=== PATIENT | male | born 1940 | race Caucasian/White ===

== ENCOUNTER 2017-06-30 16:12 | Emergency (ER) | payer MEDICARE, OTHER ==
[~2017-06-30 16:12] MED LIST: ALEN70TA47 PO; CINN500C PO; DOCU-116 PO; FERR325T22 PO; FOLI1TAB61 PO; INSU100V12 SQ; LISI2.5T2 PO; METF10004 PO; OMEG1CAP67 PO; SITA100T12 PO; TAMS0.4C32 PO; TRAM50TA2 PO
[2017-06-30] MEDS ORDERED: TETANUS/DIPHTHERIA TOXOID [ADULT] 0.5 ML VIAL IM ONE (16:30)
== END 2017-06-30 19:11 | disposition home or self-care (01) ==
LOC: EDH 16:12
DX: S00.01XA Abrasion of scalp, initial encounter (principal); I10 Essential (primary) hypertension; E78.5 Hyperlipidemia, unspecified; E11.9 Type 2 diabetes mellitus without complications; W18.39XA Other fall on same level, initial encounter; Y93.89 Activity, other specified; Y92.098 Other place in other non-institutional residence as the place of occurrence of the external cause; Y99.8 Other external cause status
CPT/HCPCS: 70450; 90471; 90714

== ENCOUNTER 2021-06-12 08:23 | Observation (INO) | payer MEDICARE, OTHER ==
[~2021-06-12] VITALS: Ht 175.3 cm; Wt 65.1 kg
[~2021-06-12 08:23] MED LIST changes: -ALEN70TA47 PO; +ALEN70TA80 PO; +LISI2.5T13 PO; -LISI2.5T2 PO; +METF-446 PO; -METF10004 PO
[2021-06-12 08:41] LABS: BASOPHILS % (AUTO) 0.2 % (0.0-5.0); EOSINOPHILS % (AUTO) 0.4 % (0.0-8.0); HEMATOCRIT 43.6 % (42-54); LYMPHOCYTES % (AUTO) 9.1 % (21.0-51.0); MEAN CORPUSCULAR HEMOGLOBIN 31.7 pg (27.0-33.0); MEAN CORPUSCULAR HGB CONC 33.5 g/dL (32.0-36.0); MEAN CORPUSCULAR VOLUME 94.8 fL (79-99); MONOCYTES % (AUTO) 5.1 % (3.0-13.0); NEUTROPHILS % (AUTO) 84.8 % (40.0-77.0); PLATELET COUNT (AUTO) 246 K/uL (130-400); RED CELL DISTRIBUTION WIDTH 12.6 % (11.0-15.5); WHITE BLOOD COUNT (AUTO) 9.1 K/uL (4.8-10.8)
[2021-06-12 08:49] LABS: POTASSIUM 4.4 mmol/L (3.5-5.1)
[2021-06-12 08:54] LABS: ALBUMIN 3.5 g/dL (3.5-5.0); BILIRUBIN,TOTAL 0.4 mg/dL (0.2-1.0); TOTAL PROTEIN, SERUM 6.4 g/dL (6.0-8.3)
[2021-06-12] MEDS ORDERED: 0.9%NACL 1000ML 1,000 ML IV ONE (09:00)
[2021-06-12] MEDS ORDERED: DiphenhydrAMINE HCL 50 MG/ML VIAL IV ONE (09:00)
[2021-06-12] MEDS ORDERED: SOLU-MEDROL 40MG VIAL ONE (09:06)
[2021-06-12] MEDS: SOLU-MEDROL 125MG VIAL IVP SCH (09:17)
[2021-06-12] MEDS ORDERED: ACETAMINOPHEN 325 MG TAB PO PRN (14:30)
[2021-06-12] MEDS ORDERED: ONDANSETRON 4MG INJ IVP PRN (14:30)
[2021-06-12] MEDS ORDERED: ACETAMINOPHEN 650 MG SUPPOSITORY RC PRN (14:30)
[2021-06-12] MEDS ORDERED: CLONIDINE HCL 0.1 MG TABLET PO PRN (14:30)
[2021-06-12] MEDS: LACTATED RINGERS 1000ML 1,000 ML IV SCH ×2 (15:24→22:30)
[2021-06-12] MEDS ORDERED: IOHEXOL 350 MG/ML 100ML INFUS..BTL IV ONE (15:46)
[2021-06-12] MEDS: INSULIN HUMULIN R 100 UNIT/ML 3ML SQ SCH ×2 (17:27→20:49)
[2021-06-12 18:30] LABS: MAGNESIUM 1.8 mg/dL (1.80-2.40)
[2021-06-12 18:42] LABS: APPEARANCE,URINE Clear (CLEAR); BILIRUBIN,URINE Negative (NEGATIVE); COLOR,URINE Yellow (YELLOW); GLUCOSE, URINE (UA) >=1000 mg/dL (NEGATIVE); KETONES,URINE 15 mg/dL (NEGATIVE); LEUKOCYTE ESTERASE ,URINE Negative (NEGATIVE); NITRATE,URINE Negative (NEGATIVE); OCCULT BLOOD,URINE Negative (NEGATIVE); PROTEIN,URINE Negative (NEGATIVE); UROBILINOGEN,URINE 0.2 mg/dL (0.2-1.0)
[2021-06-12 18:49] LABS: BACTERIA,URINE Rare /HPF (None Seen); RBC,URINE 0-1 /HPF (0-1); WBC,URINE 0-1 /HPF (0-1)
[2021-06-12 18:50] LABS: SQUAMOUS EPITHELIAL CELL,UR Rare /HPF (0-2)
[2021-06-12] MEDS: M.V.I. IV [ADULT] 10 ML, FOLIC ACID 1 MG, THIAMINE HCL 100 MG in 0.9%NACL 1000ML 1,000 ML IV SCH (19:34)
[2021-06-12] MEDS ORDERED: DIPHENHYDRAMINE HCL 25 MG CAPSULE ONE (20:45)
[2021-06-12] MEDS: Vitamin B Complex/Vit C/Folic Acid PO SCH (20:48)
[2021-06-12] MEDS: FISH OIL 1000 MG/CAP PO SCH (20:48)
[2021-06-12] MEDS: TAMSULOSIN HCL 0.4 MG CAP.ER.24H PO SCH (20:48)
[2021-06-12] MEDS: DOCUSATE SODIUM 100 MG CAP PO SCH (20:48)
[2021-06-12] MEDS: DIPHENHYDRAMINE HCL 25 MG CAPSULE PO SCH (21:04)
[2021-06-13] MEDS ORDERED: DIPHENHYDRAMINE HCL 25 MG CAPSULE PO SCH
[2021-06-13] MEDS: DIPHENHYDRAMINE HCL 25 MG CAPSULE PO SCH ×4 (02:01→18:05)
[2021-06-13 05:11] LABS: BASOPHILS % (AUTO) 0.3 % (0.0-5.0); EOSINOPHILS % (AUTO) 0.3 % (0.0-8.0); HEMATOCRIT 39.2 % (42-54); MEAN CORPUSCULAR HEMOGLOBIN 31.7 pg (27.0-33.0); MEAN CORPUSCULAR HGB CONC 34.4 g/dL (32.0-36.0); MONOCYTES % (AUTO) 5.3 % (3.0-13.0); NEUTROPHILS % (AUTO) 82.8 % (40.0-77.0); PLATELET COUNT (AUTO) 262 K/uL (130-400); RED BLOOD CELL COUNT(AUTO) 4.26 MIL/uL (4.50-6.20); RED CELL DISTRIBUTION WIDTH 12.8 % (11.0-15.5); WHITE BLOOD COUNT (AUTO) 11.5 K/uL (4.8-10.8)
[2021-06-13 05:23] LABS: CREATININE 0.8 mg/dL (0.5-1.5); POTASSIUM 4.1 mmol/L (3.5-5.1)
[2021-06-13] MEDS: LACTATED RINGERS 1000ML 1,000 ML IV SCH (06:21)
[2021-06-13] MEDS: INSULIN HUMULIN R 100 UNIT/ML 3ML SQ SCH ×4 (07:30→22:30)
[2021-06-13] MEDS ORDERED: ASPIRIN 325MG TAB PO SCH (08:00)
[2021-06-13] MEDS ORDERED: ENOXAPARIN SODIUM 40 MG/0.4 ML SYRINGE SQ SCH (09:00)
[2021-06-13] MEDS ORDERED: M.V.I. IV [ADULT] 10 ML, FOLIC ACID 1 MG, THIAMINE HCL 100 MG in 0.9%NACL 1000ML 1,000 ML IV SCH (09:00)
[2021-06-13] MEDS: SOLU-MEDROL 125MG VIAL IVP SCH (09:45)
[2021-06-13] MEDS: M.V.I. IV [ADULT] 10 ML, FOLIC ACID 1 MG, THIAMINE HCL 100 MG in 0.9%NACL 1000ML 1,000 ML IV SCH (09:45)
[2021-06-13] MEDS: FERROUS SULFATE 325 MG TABLET.DR PO SCH (09:45)
[2021-06-13] MEDS: PANTOPRAZOLE 40 MG TAB DR PO SCH (09:45)
[2021-06-13] MEDS: DOCUSATE SODIUM 100 MG CAP PO SCH ×2 (09:45→22:30)
[2021-06-13] MEDS: ASPIRIN 81 MG EC TAB PO SCH (11:00)
[2021-06-13] MEDS ORDERED: DIPHENHYDRAMINE 2% CREAM 30 GM TP PRN (12:00)
[2021-06-13] MEDS ORDERED: DIPHENHYDRAMINE HCL 25 MG CAPSULE PO PRN (12:00)
[2021-06-13] MEDS: CLOPIDOGREL 75MG TAB PO SCH (12:23)
[2021-06-13] MEDS ORDERED: PHARMACY COMMUNICATION MISC SCH (18:00)
[2021-06-13] MEDS ORDERED: SIMVASTATIN 10 MG TABLET PO SCH (21:00)
[2021-06-13] MEDS: Vitamin B Complex/Vit C/Folic Acid PO SCH (22:30)
[2021-06-13] MEDS: FISH OIL 1000 MG/CAP PO SCH (22:30)
[2021-06-13] MEDS: SOLU-MEDROL 40MG VIAL IVP SCH (22:30)
[2021-06-13] MEDS: TAMSULOSIN HCL 0.4 MG CAP.ER.24H PO SCH (22:30)
[2021-06-14 00:30] VITALS: BP 138/71
[2021-06-14] MEDS: LACTATED RINGERS 1000ML 1,000 ML IV SCH ×2 (00:41→09:00)
[2021-06-14] MEDS: DIPHENHYDRAMINE HCL 25 MG CAPSULE PO SCH ×3 (00:41→11:36)
[2021-06-14 03:35] VITALS: BP 111/75
[2021-06-14] MEDS: INSULIN HUMULIN R 100 UNIT/ML 3ML SQ SCH ×2 (06:08→11:34)
[2021-06-14 07:00] VITALS: BP 142/60
[2021-06-14 08:00] VITALS: BP 133/56
[2021-06-14 08:29] LABS: HEMATOCRIT 38.6 % (42-54); MEAN CORPUSCULAR HEMOGLOBIN 32.1 pg (27.0-33.0); MEAN CORPUSCULAR HGB CONC 33.9 g/dL (32.0-36.0); MEAN CORPUSCULAR VOLUME 94.6 fL (79-99); RED BLOOD CELL COUNT(AUTO) 4.08 MIL/uL (4.50-6.20); RED CELL DISTRIBUTION WIDTH 12.7 % (11.0-15.5); WHITE BLOOD COUNT (AUTO) 8.7 K/uL (4.8-10.8)
[2021-06-14 08:36] LABS: CREATININE 0.9 mg/dL (0.5-1.5); POTASSIUM 4.2 mmol/L (3.5-5.1)
[2021-06-14] MEDS ORDERED: ASPIRIN 81 MG EC TAB PO SCH (09:00)
[2021-06-14] MEDS: CLOPIDOGREL 75MG TAB PO SCH (09:00)
[2021-06-14] MEDS: ASPIRIN 81 MG EC TAB PO SCH (09:00)
[2021-06-14] MEDS: FERROUS SULFATE 325 MG TABLET.DR PO SCH (09:00)
[2021-06-14] MEDS: DOCUSATE SODIUM 100 MG CAP PO SCH (09:00)
[2021-06-14] MEDS: PANTOPRAZOLE 40 MG TAB DR PO SCH (09:00)
[2021-06-14] MEDS: SOLU-MEDROL 40MG VIAL IVP SCH (09:08)
[2021-06-14] MEDS: M.V.I. IV [ADULT] 10 ML, FOLIC ACID 1 MG, THIAMINE HCL 100 MG in 0.9%NACL 1000ML 1,000 ML IV SCH (09:29)
[2021-06-14] MEDS ORDERED: DIPH25TA51 PO (11:48)
[2021-06-14] MEDS ORDERED: METH4TAB3 PO (11:48)
== END 2021-06-14 14:10 | disposition home or self-care (01) ==
LOC: EDH 08:23 → EDHIP 14:18 → 3AH 06-13 22:41
PROVIDERS: ADMIT Internal Medicine; ATTEND Internal Medicine
DX: R55 Syncope and collapse (principal); Z20.822 Contact with and (suspected) exposure to COVID-19; I66.01 Occlusion and stenosis of right middle cerebral artery; R61 Generalized hyperhidrosis; I10 Essential (primary) hypertension; E11.9 Type 2 diabetes mellitus without complications; I49.3 Ventricular premature depolarization; N40.0 Benign prostatic hyperplasia without lower urinary tract symptoms; M81.0 Age-related osteoporosis without current pathological fracture; I87.1 Compression of vein; R63.4 Abnormal weight loss; Z79.4 Long term (current) use of insulin; Z68.21 Body mass index [BMI] 21.0-21.9, adult; Z79.899 Other long term (current) drug therapy; Z98.890 Other specified postprocedural states; Z86.718 Personal history of other venous thrombosis and embolism; Z87.891 Personal history of nicotine dependence; Z79.82 Long term (current) use of aspirin; W18.30XA Fall on same level, unspecified, initial encounter; Y92.89 Other specified places as the place of occurrence of the external cause; Y93.89 Activity, other specified
CPT/HCPCS: 36415 ×3; 70450; 70492; 70544; 70547; 70551; 71045; 71270; 80048 ×2; 80053; 81001; 82550 ×3; 82948 ×8; 83735; 83874 ×3; 84100; 84443; 84484 ×4; 85025 ×2; 85027; 85378; 87635; 93005 ×3; 93306; 93356; 93970; 96361 ×3; 96365; 96366 ×3; 96372; 96375; 96376 ×2; 99285; G0378 ×48; J1200; J1650; J1815 ×6; J2920 ×4; J2930; J3411 ×2; J3490 ×2; J7030 ×3; J7120 ×2; Q0163 ×8; Q9967

== ENCOUNTER → 2022-08-08 | Outpatient (CLI) | payer MEDICARE ==
[~2022-08-08] MED LIST changes: -ALEN70TA80 PO; -CINN500C PO; +DIPH25TA51 PO; +METH4TAB3 PO; +OMEG-133 PO; -OMEG1CAP67 PO
[2022-08-08 14:53] LABS: HEMOGLOBIN A1C 6.4 % (4.0-6.0)
== END | disposition home or self-care (01) ==
LOC: LAB 13:40
PROVIDERS: ATTEND Internal Medicine
DX: E11.9 Type 2 diabetes mellitus without complications (principal)
CPT/HCPCS: 83036